=== PATIENT | female | born 1945 | race Caucasian/White ===

== ENCOUNTER 2016-11-05 08:51 | Observation (INO) | payer MEDICARE ==
[2016-11-05] MEDS ORDERED: MORPHINE SULFATE 5 MG/ML PFS IVP ONE (09:06)
--- NOTE | 2016-11-05 09:06 | Emergency Department Record ---
History of Present Illness - General Chief Complaint: Chest Pain Stated Complaint: CHEST PAIN Time Seen by Provider: 11/05/16 08:55 Source: Patient, Family Mode of Arrival: Wheelchair Limitations: No limitations - History of Present Illness Initial Comments: 71 yo female presents with chest pain that started this morning about one hour ago. The discomfort is pressure sensation that is over the anterior chest, more to the left with radiation through to the back. It was intense for about 30 minutes and now is almost gone. She is 1/10. No shortness of breath. No cough, no sweating. No history of the same. No history of DVT/PE. She took a 325mg Aspirin prior to arrival. Her last EKG was in 1999. PCP Cornelius. 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 Complaint: Chest pain Onset/Timin -: Hour(s) Onset: Awoke with symptoms Pain Location: Substernal Pain Radiation: RUE, Back Severity: Mild Quality: Aching Consistency: Constant Improves With: Nothing Worsens With: Nothing Treatments Prior to Arrival: Aspirin - Related Data Home Medications Medication Instructions Recorded Confirmed Last Taken Aspirin [Aspirin EC] 81 mg PO DAILY 11/05/16 11/05/16 Unknown B2/Vit A,C & E/Lut/Zeaxanth/Mn 1 each PO DAILY 11/05/16 11/05/16 11/04/16 [Icaps Tablet] Levothyroxine Sodium [Synthroid] 25 mcg PO DAILYTHY 11/05/16 11/05/16 Unknown Lovastatin [Lovastatin] 40 mg PO QHS 11/05/16 11/05/16 11/04/16 Verapamil HCl [Calan] 120 mg PO TID 11/05/16 11/05/16 Unknown Allergies Allergy/AdvReac Type Severity Reaction Status Date / Time Sulfa (Sulfonamide Allergy PT UNSURE Verified 11/05/16 09:00 Antibiotics) OF REACTION Travel Screening - Travel/Exposure Within Last 30 Days Have you traveled within the last 30 days?: No Review of Systems Constitutional: Denies: Chills, Fever, Malaise, Weakness Eyes: Denies: Eye discharge, Eye pain, Photophobia, Vision change ENT: Denies: Congestion, Throat pain Respiratory: Denies: Cough, Dyspnea, Hemoptysis, Stridor, Wheezes Cardiovascular: Reports: Chest pain. Denies: Dyspnea on exertion, Edema, Palpitations, Syncope Endocrine: Denies: Fatigue, Polydipsia, Polyuria Gastrointestinal: Denies: Abdominal pain, Diarrhea, Nausea, Vomiting Genitourinary: Denies: Dysuria, Hematuria, Urgency Musculoskeletal: Reports: Back pain. Denies: Arthralgia, Joint swelling, Myalgia, Neck pain Skin: Denies: Bruising, Change in color, Rash Neurological: Denies: Confusion, Headache Psychiatric: Denies: Anxiety, Depression Hematological/Lymphatic: Denies: Blood Clots, Easy bleeding, Easy bruising, Swollen glands Physical Exam - General General Appearance: Alert, Oriented x3, Cooperative, No acute distress, Other ( Appears calm and relaxed) Limitations: No limitations - Head Head exam: Normal inspection - Eye Eye exam: Normal appearance, PERRL. negative: Conjunctival injection, Periorbital swelling, Scleral icterus - ENT ENT exam: Normal exam Ear exam: Normal external inspection Nasal Exam: Normal inspection Mouth exam: Normal external inspection Teeth exam: Normal inspection Throat exam: Normal inspection - Neck Neck exam: Normal inspection, Full ROM. negative: Tenderness - Respiratory Respiratory exam: Normal lung sounds bilaterally. negative: Chest wall tenderness, Respiratory distress, Rhonchi, Stridor, Wheezes - Cardiovascular Cardiovascular Exam: Regular rate, Normal rhythm, Normal heart sounds Peripheral Pulses: 2+: Radial (R), Radial (L) - GI/Abdominal GI/Abdominal exam: Soft. negative: Distended, Guarding, Tenderness - Rectal Rectal exam: Deferred - exam: Deferred - Extremities Extremities exam: Normal inspection, Full ROM, Normal capillary refill. negative: Joint swelling, Pedal edema, Tenderness - Back Back exam: Reports: Normal inspection, Full ROM. Denies: Muscle spasm, Rash noted, Tenderness - Neurological Neurological exam: Alert, Normal gait, Oriented X3 - Psychiatric Psychiatric exam: Normal affect, Normal mood. negative: Agitated, Anxious - Skin Skin exam: Dry, Intact, Normal color, Warm Course Vital Signs 11/05/16 08:53 Temperature 97.8 F Pulse Rate 101 H Respiratory 20 Rate Blood Pressure 142/80 Pulse Ox 93 L - Reevaluation(s) Reevaluation #1: EKG 08:53 NSR rate of 94 RBBB, QTc 474, axis left, ST NS changes CW RBBB. Prior EKG 07/02/2000 sinus tach otherwise normal at that time 11/05/16 08:57 The patient is very comfortable and declined pain medication. 11/05/16 09:12 Reevaluation #2: The labs were reviewed D-dimer elevated at 0.67 Troponin is normal No changes of the CBC or CMP CXR NAD 11/05/16 09:49 Reevaluation #3: CTA of the chest is negative for any acute process. I recommend admission for serial enzymes and cardiology consult tomorrow I SURINDER TOURE regarding the admission and plan 11/05/16 11:35 Medical Decision Making - Lab Data Result diagrams: 11/05/16 09:00 11/05/16 09:00 Disposition Disposition: Admit Clinical Impression: Chest pain, Right bundle branch block (RBBB) Disposition: Still a Patient at [facility] Decision to Admit: Admit from ER Decision to Admit Date: 11/05/16 Decision to Admit Time: 11:40 Time of Disposition: 11:40
[2016-11-05 09:07] LABS: BASO % 0.4 % (0-6); EOS % 1.7 % (0-6); GRAN % 48.2 % (47-80); HEMATOCRIT 40.5 % (35.0-47.0); HEMOGLOBIN 13.4 gm/dl (11.6-16.0); LYMPH % 39.9 % (16-45); MEAN CELL VOLUME 89.6 fl (81-97); MEAN CORPUSCULAR HEMOGLOBIN 29.6 pg (27-33); MEAN CORPUSCULAR HGB CONC 33.1 g/dl (32-36); MEAN PLATELET VOLUME 9.3 fl (7.4-10.4); MONO % 9.8 % (0-9); PLATELET COUNT 279 K/uL (130-400); RED BLOOD COUNT 4.52 M/uL (3.80-5.40); RED CELL DISTRIBUTION WIDTH 14.1 % (11.5-14.5); WHITE BLOOD COUNT W/O DIFF 8.4 K/uL (4.2-12.2)
[2016-11-05 09:19] LABS: BLOOD UREA NITROGEN 18 mg/dL (7-17); CREATINE PHOSPHOKINASE 44 U/L (30-135); EST GLOMERULAR FILTRATION RATE 58 ml/min; GLUCOSE,RANDOM 111 mg/dL (70-110)
[2016-11-05 09:21] LABS: INR 0.95; PARTIAL THROMBOPLASTIN TIME 27.5 SECONDS (24.5-39.1); PROTHROMBIN TIME (PATIENT) 10.7 SECONDS (9.5-12.1)
[2016-11-05 09:24] LABS: D-DIMER 0.67 mg/L FEU (0-0.59)
[2016-11-05 09:31] LABS: CKMB 0.7 ug/L (0-6)
[2016-11-05 09:32] LABS: TROPONIN I < 0.012 ng/mL (0.00-0.034)
[2016-11-05] MEDS ORDERED: NITROGLYCERIN 0.4MG SL TABLET #25 BTL SL PRN (12:48)
[2016-11-05] MEDS ORDERED: PNEUM 13-VAL/PF 0.5 ML IM ONE (13:07)
[2016-11-05] MEDS: VERAPAMIL 120 MG PO SCH ×2 (15:59→21:05)
[2016-11-05] MEDS: PATIENT OWN MED: LOVASTATIN 40 MG PO SCH ×2 (20:29→21:04)
[2016-11-06] MEDS ORDERED: PATIENT OWN MED: LEVOTHYROXINE 25 MCG PO SCH (07:00)
--- NOTE | 2016-11-06 09:03 | RADIOLOGY REPORT ---
EXAM: CHEST HISTORY: LEFT SIDED CHEST PAIN. TECHNIQUE: Two views of the chest were obtained. Comparison: None. FINDINGS: The heart and mediastinum are unremarkable. There is no infiltrate or vascular congestion identified. IMPRESSION: NO ACUTE CARDIAC OR PULMONARY ABNORMALITY IDENTIFIED. JOB NUMBER: [id number] MTDD
--- NOTE | 2016-11-06 09:06 | CT ANGIOGRAM REPORT ---
EXAM: CT ANGIOGRAPHY OF THE THORAX HISTORY: CHEST PAIN. TECHNIQUE: CT angiography of the thorax was performed. 87 ml of Omnipaque 350 contrast was used for this examination. Coronal and sagittal post processed MIP images were performed on an independent workstation as part of this examination. Comparison: Chest x-ray 11/05/16. FINDINGS: No pulmonary emboli are seen. No aortic aneurysm or aortic dissection. There are coronary artery calcifications present. No area of lung consolidation. No pleural or pericardial effusion. Linear scarring is present at the left lung base. No lung mass or lung nodule. No enlarged mediastinal or hilar lymph nodes. No mediastinal mass. Limited upper abdominal images are unremarkable. IMPRESSION: 1. NO ACUTE THORACIC PROCESS IDENTIFIED. NO PULMONARY EMBOLI. NO AORTIC ANEURYSM OR AORTIC DISSECTION. 2. CORONARY ARTERY CALCIFICATIONS ARE PRESENT. 3. CARDIOMEGALY. JOB NUMBER: [id number] [facility]
[2016-11-06] MEDS: VERAPAMIL 120 MG PO SCH ×2 (09:58→16:03)
[2016-11-06] MEDS ORDERED: [UNRECOGNIZED DRUG - OTHER] PO SCH (10:00)
[2016-11-06] MEDS ORDERED: ASPIRIN 325 MG TAB ENTERIC-COATED PO SCH ×2 (10:00)
--- NOTE | 2016-11-06 10:01 | History & Physical ---
History of Present Illness - Date of Service Date of Service for History & Physical: 11/06/16 - History of Present Illness Admitting Diagnosis: chest pain History of Present Illness: 71 yo female presents with chest pain that started yesterday, about one hour prior to coming into ED. The discomfort is pressure sensation that is over the anterior chest, more to the left with radiation through to the back. It was intense for about 30 minutes and was almost gone by time got to ED. She is 1/ 10. No shortness of breath. No cough, no sweating. No history of the same. No history of DVT/PE. She took a 325mg Aspirin prior to arrival. Her last EKG was in 1999. In ED: Ordered ASC rule out with 3 sets of CE, EKG follow up and cardiology consult. CTA negative for PE . PCP Cornelius. 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 Travel Screening - Travel/Exposure Within Last 30 Days Have you traveled within the last 30 days?: No - Travel/Exposure Within Last Year Have you traveled outside the [place] in the last year?: No - Additonal Travel Details Have you been exposed to anyone with a communicable illness?: No - Travel Symptoms Symptom Screening: None Review of Systems Constitutional: Denies: Chills, Fever, Malaise, Weakness Eyes: Denies: Eye discharge, Eye pain, Photophobia, Vision change ENT: Denies: Congestion, Throat pain Respiratory: Denies: Cough, Dyspnea, Hemoptysis, Stridor, Wheezes Cardiovascular: Denies: Chest pain, Dyspnea on exertion, Edema, Palpitations, Syncope Endocrine: Denies: Fatigue, Polydipsia, Polyuria Gastrointestinal: Denies: Abdominal pain, Diarrhea, Nausea, Vomiting Genitourinary: Denies: Dysuria, Hematuria, Urgency Musculoskeletal: Denies: Arthralgia, Back pain, Joint swelling, Myalgia, Neck pain Skin: Denies: Bruising, Change in color, Rash Neurological: Denies: Confusion, Headache Psychiatric: Denies: Anxiety, Depression Hematological/Lymphatic: Denies: Blood Clots, Easy bleeding, Easy bruising, Swollen glands Past Medical History - SOCIAL HISTORY Smoking Status: Never smoker Alcohol Use: None Drug Use: None - RESPIRATORY Hx Respiratory Disorders: Yes Hx Asthma: Yes - CARDIOVASCULAR Hx Cardio Disorders: Yes Hx Chest Pain: Yes Hx Hypertension: Yes Comment:: high cholesterol - NEURO Hx Neuro Disorders: Yes Hx Dizziness: Yes - GI Hx GI Disorders: No - Hx Genitourinary Disorders: No - ENDOCRINE Hx Endocrine Disorders: Yes Hx Thyroid Disease: Yes - MUSCULOSKELETAL Hx Musculoskeletal Disorders: Yes Hx Arthritis: Yes Hx Gout: Yes - PSYCH Hx Psych Problems: No - HEMATOLOGY/ONCOLOGY Hx Hematology/Oncology Disorders: Yes Hx Cancer: Yes (right breast) Family Medical History Any Significant Family History?: Yes Hx Heart Disease: Father H&P Meds/Allergies - Allergies Allergies: Allergies Allergy/AdvReac Type Severity Reaction Status Date / Time Sulfa (Sulfonamide Allergy PT UNSURE Verified 11/05/16 09:00 Antibiotics) OF REACTION - Home Medications Home Medications Medication Instructions Recorded Confirmed Last Taken Aspirin [Aspirin EC] 81 mg PO DAILY 11/05/16 11/05/16 Unknown B2/Vit A,C & E/Lut/Zeaxanth/Mn 1 each PO DAILY 11/05/16 11/05/16 11/04/16 [Icaps Tablet] Levothyroxine Sodium [Synthroid] 25 mcg PO DAILYTHY 11/05/16 11/05/16 Unknown Lovastatin [Lovastatin] 40 mg PO QHS 11/05/16 11/05/16 11/04/16 Verapamil HCl [Calan] 120 mg PO TID 11/05/16 11/05/16 Unknown - Active Medications Active Medications: Current Medications Aspirin (Ecotrin (Ec)) 325 mg PO DAILY [facility] Last Admin: 11/06/16 09:58 Dose: 325 mg Nitroglycerin (Nitrostat 0.4mg) 0.4 mg SL Q5MIN PRN PRN Reason: CHEST PAIN Stop: 11/07/16 12:49 Patient Own Med: (Levothyroxine 25 Mcg) 1 each PO DAILYTHY [facility] Last Admin: 11/06/16 07:43 Dose: 1 each Patient Own Med: (Lovastatin 40 Mg) 1 each PO QHS [facility] Last Admin: 11/05/16 21:04 Dose: Not Given Patient Own Med: (Verapamil 120 Mg) 1 each PO TID [facility] Last Admin: 11/06/16 09:58 Dose: 1 each Physical Exam - Vital Signs Vital Signs: Vital Signs - Last 24 Hrs Temp Pulse Resp BP Pulse Ox 11/06/16 08:00 97.5 F L 73 20 137/70 93 L 11/06/16 07:56 74 20 11/05/16 20:00 98.2 F 85 18 113/57 95 11/05/16 13:25 110 H 20 11/05/16 13:15 98.4 F 79 20 122/74 95 11/05/16 12:43 98.0 F 66 20 132/76 98 - General General Appearance: Alert, Oriented x3, Cooperative, No acute distress, Other ( Appears calm and relaxed, morbidly obese) Limitations: No limitations - Head Head exam: Normal inspection - Eye Eye exam: Normal appearance, PERRL. negative: Conjunctival injection, Periorbital swelling, Scleral icterus - ENT ENT exam: Normal exam Ear exam: Normal external inspection Nasal Exam: Normal inspection Mouth exam: Normal external inspection Teeth exam: Normal inspection Throat exam: Normal inspection - Neck Neck exam: Normal inspection, Full ROM. negative: Tenderness - Respiratory Respiratory exam: Normal lung sounds bilaterally. negative: Chest wall tenderness, Respiratory distress, Rhonchi, Stridor, Wheezes - Cardiovascular Cardiovascular Exam: Regular rate, Normal rhythm, Normal heart sounds Peripheral Pulses: 2+: Radial (R), Radial (L) - GI/Abdominal GI/Abdominal exam: Soft. negative: Distended, Guarding, Tenderness - Rectal Rectal exam: Deferred - exam: Deferred - Extremities Extremities exam: Normal inspection, Full ROM, Normal capillary refill. negative: Joint swelling, Pedal edema, Tenderness - Back Back exam: Reports: Normal inspection, Full ROM. Denies: Muscle spasm, Rash noted, Tenderness - Neurological Neurological exam: Alert, Normal gait, Oriented X3 - Psychiatric Psychiatric exam: Normal affect, Normal mood. negative: Agitated, Anxious - Skin Skin exam: Dry, Intact, Normal color, Warm Results - Labs Result Diagrams: 11/05/16 09:00 11/05/16 09:00 Labs Last 24 Hours: Laboratory Results - last 24 hr 11/05/16 11/06/16 18:09 01:50 Troponin I < 0.012 < 0.012 VTE H&P Assessment - Risk for VTE Risk for VTE: Yes Risk Level: Very Low Risk Assessment Date: 11/06/16 Risk Assessment Time: 17:39 VTE Orders Placed or Will Be Placed: No VTE Reason for No Prophylaxis: Not Indicated Plan - Detailed Diagnosis and Plan (1) Chest pain Current Visit: Yes Status: Acute Base Code: R07.9 - CHEST PAIN, UNSPECIFIED Comment: 11/06- chest pain resolved but with age, history of smoking, and HTN will do complete ACS rule out with cardiology referal. (2) Right bundle branch block (RBBB) Current Visit: Yes Status: Chronic Base Code: I45.10 - UNSPECIFIED RIGHT BUNDLE-BRANCH BLOCK Comment: 11/06- will consult cardiology but patient asymtomatic
--- NOTE | 2016-11-06 17:47 | Discharge Summary ---
Providers Discharge Summary Date: 11/06/16 Date of admission: 11/05/16 12:35 Expected Date of Discharge: 11/06/16 Attending physician: NIKOLAS GUTIÉRREZ Primary care physician: LILLIANA SULLIVAN D.O. Physical Exam - Vital Signs Vital Signs: Vital Signs - Last 24 Hrs Temp Pulse Resp BP Pulse Ox 11/06/16 08:00 97.5 F L 73 20 137/70 93 L 11/06/16 07:56 74 20 11/05/16 20:00 98.2 F 85 18 113/57 95 - General General Appearance: Alert, Oriented x3, Cooperative, No acute distress, Other ( Appears calm and relaxed, morbidly obese) Limitations: No limitations - Head Head exam: Normal inspection - Eye Eye exam: Normal appearance, PERRL. negative: Conjunctival injection, Periorbital swelling, Scleral icterus - ENT ENT exam: Normal exam Ear exam: Normal external inspection Nasal Exam: Normal inspection Mouth exam: Normal external inspection Teeth exam: Normal inspection Throat exam: Normal inspection - Neck Neck exam: Normal inspection, Full ROM. negative: Tenderness - Respiratory Respiratory exam: Normal lung sounds bilaterally. negative: Chest wall tenderness, Respiratory distress, Rhonchi, Stridor, Wheezes - Cardiovascular Cardiovascular Exam: Regular rate, Normal rhythm, Normal heart sounds Peripheral Pulses: 2+: Radial (R), Radial (L) - GI/Abdominal GI/Abdominal exam: Soft. negative: Distended, Guarding, Tenderness - Rectal Rectal exam: Deferred - exam: Deferred - Extremities Extremities exam: Normal inspection, Full ROM, Normal capillary refill. negative: Joint swelling, Pedal edema, Tenderness - Back Back exam: Reports: Normal inspection, Full ROM. Denies: Muscle spasm, Rash noted, Tenderness - Neurological Neurological exam: Alert, Normal gait, Oriented X3 - Psychiatric Psychiatric exam: Normal affect, Normal mood. negative: Agitated, Anxious - Skin Skin exam: Dry, Intact, Normal color, Warm Hospitalization - Hospitalization Admission Diagnosis: chest pain - Problem List/Discharge Diagnosis (1) Chest pain Current Visit: Yes Status: Acute Base Code: R07.9 - CHEST PAIN, UNSPECIFIED Comment: 1/3- chest pain resolved but with age, history of smoking, and HTN completed ACS rule outed with CE and EKG, suspect muscularskeletal. Cardiology referal recommened stress test and Dr. Ruiz to order prior to discharge. (2) Right bundle branch block (RBBB) Current Visit: Yes Status: Chronic Base Code: I45.10 - UNSPECIFIED RIGHT BUNDLE-BRANCH BLOCK Comment: 11/06- will consult cardiology but patient asymtomatic. Recommended stress test outpatient. - Hospitalization Course Disposition: Home, Self-Care Condition at Discharge: (2) Stable Discharge Diagnosis: 1) noncardiac stress test Discharge Medications - Discharge Medications Home Medications: Ambulatory Orders Aspirin [Aspirin EC] 81 mg PO DAILY 11/05/16 [Last Taken Unknown] B2/Vit A,C & E/Lut/Zeaxanth/Mn [Icaps Tablet] 1 each PO DAILY 11/05/16 [Last Taken 11/04/16] Levothyroxine Sodium [Synthroid] 25 mcg PO DAILYTHY 11/05/16 [Last Taken Unknown ] Lovastatin 40 mg PO QHS 11/05/16 [Last Taken 11/04/16] Verapamil HCl [Calan] 120 mg PO TID 11/05/16 [Last Taken Unknown] Discharge Plan - Discharge Instructions Activity at Discharge: Resume Usual Activities As Tolerated Diet at Discharge: Regular Diet, Low Fat, Low Cholesterol
--- NOTE | 2016-11-08 15:31 | Medical Records Consult ---
DATE OF CONSULTATION: 11/06/16 REFERRING PHYSICIAN: DR. NIKOLAS GUTIÉRREZ. REASON FOR CONSULTATION: CHEST PAIN. HISTORY OF PRESENT ILLNESS: Miss Butt is a 71-year-old female with a history of hypertension as well as hyperlipidemia. She presented with complaints of chest pain that started yesterday while she was sitting down. She describes her chest pain as a sharp pain, about 7 to 8 out of 10 in severity, and was in the middle of the chest radiating sometimes to the right shoulder as well. It was not associated with diaphoresis, nausea, vomiting, or shortness of breath. Initially, it lasted a few minutes then went away. She took an Aspirin and then it came back when she decided to come to the Emergency Department. She said that deep breathing or movement in certain positions will exacerbate the chest pain. She doesn't have any history of coronary artery disease. The patient was admitted for observation. Her serial cardiac enzymes have been negative and a CT chest was negative for pulmonary embolism. PAST MEDICAL HISTORY: Significant for hypertension as well as hyperlipidemia. HOME MEDICATIONS: Her home medications are: Aspirin Vitamin A, C, and B2. She is also on Levothyroxine 25 mcg daily and Lovastatin 40 mg daily as well as Verapamil 120 mg p.o. t.i.d. ALLERGIES: THE PATIENT IS ALLERGIC TO SULFA. FAMILY HISTORY: The patient says that her father at age 39 of cardiac issues and she says that he had rheumatic fever as well as had, what she describes as, a ventricular septal defect. SOCIAL HISTORY: The patient denies any illicit drug use and denies any smoking. She is accompanied by her . She is retired and is a homemaker. REVIEW OF SYSTEMS: Denies any fevers or chills. Complains of chest pain as stated in the HPI. Denies any bleeding complications. Denies any history of anxiety or depression. PHYSICAL EXAMINATION: VITAL SIGNS: The patient's resting vital signs show a blood pressure of 140/80 mmHg with a heart rate of 85 beats per minute and a temperature of 97.8 degrees Fahrenheit. GENERAL: The patient is an obese, female sitting up in bed and is not in any apparent distress. She is alert and oriented x3. HEENT EXAMINATION: Normocephalic/atraumatic. Pupils equal and reactive to light. Extraocular muscles are intact. NECK: Supple. LUNGS/CVS: She has normal S1 and S2. There is no JVD and no pedal edema. RESPIRATORY EXAMINATION: Reveals that the lungs are clear to auscultation bilaterally. ABDOMEN: Soft and nontender. NEUROLOGICAL EXAMINATION: Nonfocal. LABORATORY: Shows white count to be 8.4, hemoglobin 13.4, platelet count 279, BUN 18, creatinine 1.0, CPK 44, CK-MB 0.7, troponin was less than 0.012. CT: CT of the chest was negative for pulmonary embolism. ECG: Her ECG shows sinus rhythm with a right bundle branch block and some nonspecific T-wave changes in the lateral precordial leads. ASSESSMENT AND PLAN: 1. CHEST PAIN: The patient's chest pain is very atypical and seems to be musculoskeletal or neuropathic rather than a cardiac origin, however, given her risk factors including her hypertension, hyperlipidemia, as well as her age, I would recommend doing a stress test, however, the patient is currently chest- pain-free and the stress test can be performed as an outpatient. Because of her obesity, she should have a two-day protocol stress test and since she cannot walk on the treadmill, we will do a pharmacologic Vasodilator stress. I will see her in my office after the stress test as well. 2. HYPERTENSION: The patient's blood pressure is adequately controlled with the current dose of Verapamil, which should be continued. 3. HISTORY OF HYPERLIPIDEMIA: She is on Lovastatin, which will be continued. Lino Major M.D. Date & Time JOB NUMBER: [id number] [facility]
== END 2016-11-06 18:19 | disposition home or self-care (01) ==
LOC: ER 08:51 → INTOOBSV 12:35 → MEDSURG 12:35
PROVIDERS: ADMIT Family Medicine; ATTEND Family Medicine
DX: R07.9 Chest pain, unspecified (principal); I45.10 Unspecified right bundle-branch block; E78.00 Pure hypercholesterolemia, unspecified
CPT/HCPCS: 71020; 71275; 80048; 82550; 82553; 84484; 85025; 85379; 85610; 85730; 93005; 93010; 93041; 94760; 94761; 99220; 99285